=== PATIENT | female | born 1980 | race Caucasian/White ===

== ENCOUNTER 2017-03-28 14:38 | Emergency (ER) | payer OTHER ==
[2017-03-28 15:02] VITALS: TEMP 99; O2SAT 96
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
[2017-03-28 18:26] VITALS: BP 119/82; PULSE 72; RESP 16
== END 2017-03-28 18:25 | disposition home or self-care (01) ==
DX: J01.90 Acute sinusitis, unspecified (principal); F17.200 Nicotine dependence, unspecified, uncomplicated; V48.5XXA Car driver injured in noncollision transport accident in traffic accident, initial encounter; Y92.410 Unspecified street and highway as the place of occurrence of the external cause

== ENCOUNTER → 2017-07-02 | Outpatient (CLI) | payer MEDICAID ==
[~2017-07-02] MED LIST: GADOBUTROL 10 ML VIAL IVP ONE
== END ==
LOC: FIMAGING 12:49
PROVIDERS: ATTEND Physician Assistant Medical
DX: R90.89 Other abnormal findings on diagnostic imaging of central nervous system (principal); M50.30 Other cervical disc degeneration, unspecified cervical region
CPT/HCPCS: A9585